=== PATIENT | male | born 1980 | race Hispanic/Latino ===

== ENCOUNTER 2019-10-18 19:59 | Inpatient (IN) | payer BC, MEDICARE ==
[~2019-10-18] VITALS: Ht 180.3 cm; Wt 97.9 kg
[~2019-10-18 19:59] MED LIST: AMLO5TAB9 PO; ASPI-1197 PO; ATOR40TA71 PO; CALC667C10 PO; CHOL200059 PO; FOLI0.8T2 PO; HYDR-4154 PO; INSU100C6 SQ; INSU100V12 SQ; LOSA100T58 PO; NEBI10TA PO; SERT50TA PO
[2019-10-18] MEDS ORDERED: ACETAMINOPHEN EXTRA STRENGTH 500 MG TABLET ONE (20:42)
[2019-10-18 20:48] LABS: BASOPHILS % (AUTO) 0.6 % (0.0-5.0); EOSINOPHILS % (AUTO) 4.4 % (0.0-8.0); HEMATOCRIT 33.9 % (42-54); MEAN CORPUSCULAR HEMOGLOBIN 29.6 pg (27.0-33.0); MEAN CORPUSCULAR HGB CONC 31.6 g/dL (32.0-36.0); MEAN CORPUSCULAR VOLUME 93.6 fL (79-99); MONOCYTES % (AUTO) 12.4 % (3.0-13.0); NEUTROPHILS % (AUTO) 68.2 % (40.0-77.0); PLATELET COUNT (AUTO) 353 K/uL (130-400); RED BLOOD CELL COUNT(AUTO) 3.62 MIL/uL (4.50-6.20); RED CELL DISTRIBUTION WIDTH 13.7 % (11.0-15.5); WHITE BLOOD COUNT (AUTO) 13.9 K/uL (4.8-10.8)
[2019-10-18 21:03] LABS: INR 0.96 (0.85-1.15); PARTIAL THROMBOPLASTIN TIME 30.1 SEC (26.3-35.5); PROTHROMBIN TIME 10.4 SEC (9.6-11.6)
[2019-10-18 21:05] LABS: ALBUMIN 3.2 g/dL (3.5-5.0); BILIRUBIN,TOTAL 0.3 mg/dL (0.2-1.0); POTASSIUM 4.3 mmol/L (3.5-5.1); TOTAL PROTEIN, SERUM 9.2 g/dL (6.0-8.3)
[2019-10-18 21:08] LABS: CREATININE 11.7 mg/dL (0.5-1.5)
[2019-10-18] MEDS ORDERED: ONDANSETRON HCL 4 MG/2 ML VIAL IV PRN (23:00)
[2019-10-18] MEDS ORDERED: VANCOMYCIN PROTOCOL PER PHARMACY IV SCH (23:00)
[2019-10-18] MEDS ORDERED: GUAIFENESIN-DM 200/20 MG 10 ML PO PRN (23:00)
[2019-10-18] MEDS: ZOSYN 3.375GM+NS 50ML 50 ML IV SCH (23:00)
[2019-10-18] MEDS ORDERED: ACETAMINOPHEN 325 MG TAB PO PRN ×2 (23:30)
[2019-10-18] MEDS ORDERED: ZOSYN 3.375GM+NS 50ML 50 ML IV ONE (23:40)
[2019-10-18] MEDS ORDERED: VANCOMYCIN 1GM+NS 250ML 250 ML IV ONE (23:40)
[2019-10-18] MEDS ORDERED: PHARMACY COMMUNICATION MISC SCH (23:45)
[2019-10-19 00:50] VITALS: BP 132/79
[2019-10-19 05:28] LABS: BASOPHILS % (AUTO) 0.4 % (0.0-5.0); EOSINOPHILS % (AUTO) 4.8 % (0.0-8.0); HEMATOCRIT 29.4 % (42-54); LYMPHOCYTES % (AUTO) 21.3 % (21.0-51.0); MEAN CORPUSCULAR HEMOGLOBIN 29.4 pg (27.0-33.0); MEAN CORPUSCULAR HGB CONC 31.6 g/dL (32.0-36.0); MONOCYTES % (AUTO) 13.7 % (3.0-13.0); NEUTROPHILS % (AUTO) 59.4 % (40.0-77.0); PLATELET COUNT (AUTO) 335 K/uL (130-400); RED BLOOD CELL COUNT(AUTO) 3.16 MIL/uL (4.50-6.20); RED CELL DISTRIBUTION WIDTH 13.7 % (11.0-15.5); WHITE BLOOD COUNT (AUTO) 13.6 K/uL (4.8-10.8)
[2019-10-19 06:05] LABS: ALBUMIN 2.8 g/dL (3.5-5.0); BILIRUBIN,TOTAL 0.2 mg/dL (0.2-1.0); POTASSIUM 4.3 mmol/L (3.5-5.1); TOTAL PROTEIN, SERUM 8.2 g/dL (6.0-8.3)
[2019-10-19 06:07] LABS: CREATININE 12.3 mg/dL (0.5-1.5)
[2019-10-19] MEDS ORDERED: COMPOUND IV REFRIGERATED 1 EACH IVSOLN MISC PRN (06:30)
[2019-10-19 07:30] VITALS: BP 171/85
[2019-10-19] MEDS: FAMOTIDINE/PF 20 MG/2 ML VIAL IV SCH (09:16)
[2019-10-19] MEDS: ZOSYN 3.375GM+NS 50ML 50 ML IV SCH ×2 (10:50→23:26)
[2019-10-19 11:00] VITALS: BP 167/108
[2019-10-19 16:00] VITALS: BP 157/92
[2019-10-19] MEDS ORDERED: HEPARIN SODIUM 5000UNIT/ML 1ML VIAL IV PRN (17:30)
[2019-10-19] MEDS: HEPARIN 25000 UNITS/250 ML D5W 250 ML IV SCH (18:48)
--- NOTE | 2019-10-19 19:13 | NUR ---
cm note pt states feels sleepy, unable to interview, per chart review, pt lives with family, independent with adls,ambulation, no dme. dc plan is home. will continue to followup for any dc needs. Addendum: 10/19/19 at 1914 by EDDIE PARDO CM Amended: Links added.
[2019-10-19 21:00] VITALS: BP 174/99
[2019-10-19] MEDS ORDERED: NITROGLYCERIN 1GM/1 INCH PACKET TD SCH (21:00)
[2019-10-20] VITALS (12 sets, daily range): BP systolic 134–179; BP diastolic 58–99
[2019-10-20 00:54] LABS: INR 0.98 (0.85-1.15); PARTIAL THROMBOPLASTIN TIME 50.4 SEC (26.3-35.5); PROTHROMBIN TIME 10.6 SEC (9.6-11.6)
[2019-10-20] MEDS ORDERED: HYDRALAZINE HCL 20 MG/ML VIAL ONE (05:53)
[2019-10-20] MEDS: HEPARIN 25000 UNITS/250 ML D5W 250 ML IV SCH (06:08)
[2019-10-20 07:20] LABS: BASOPHILS % (AUTO) 0.4 % (0.0-5.0); EOSINOPHILS % (AUTO) 4.1 % (0.0-8.0); HEMATOCRIT 30.2 % (42-54); LYMPHOCYTES % (AUTO) 17.7 % (21.0-51.0); MEAN CORPUSCULAR HEMOGLOBIN 29.1 pg (27.0-33.0); MEAN CORPUSCULAR HGB CONC 31.5 g/dL (32.0-36.0); MEAN CORPUSCULAR VOLUME 92.4 fL (79-99); MONOCYTES % (AUTO) 8.1 % (3.0-13.0); NEUTROPHILS % (AUTO) 69.3 % (40.0-77.0); PLATELET COUNT (AUTO) 393 K/uL (130-400); RED BLOOD CELL COUNT(AUTO) 3.27 MIL/uL (4.50-6.20); RED CELL DISTRIBUTION WIDTH 13.7 % (11.0-15.5)
[2019-10-20 07:57] LABS: ALBUMIN 2.8 g/dL (3.5-5.0); BILIRUBIN,TOTAL 0.3 mg/dL (0.2-1.0); PHOSPHORUS 7.9 mg/dL (2.5-4.9); POTASSIUM 4.4 mmol/L (3.5-5.1)
--- NOTE | 2019-10-20 08:29 | NUR ---
ZOFRAN IV GIVEN NOW FOR C/O OF N/V.
[2019-10-20] MEDS: HYDRALAZINE HCL 25 MG TABLET PO SCH (09:00)
[2019-10-20] MEDS: CALCIUM ACETATE 667 MG CAPSULE PO SCH ×3 (09:00→17:00)
[2019-10-20] MEDS: FOLIC ACID/VITAMIN B COMP W-C 1 CAP TAB PO SCH (09:00)
[2019-10-20] MEDS: FAMOTIDINE/PF 20 MG/2 ML VIAL IV SCH (09:00)
[2019-10-20] MEDS: AMLODIPINE BESYLATE 5 MG TAB PO SCH (09:00)
[2019-10-20] MEDS: ASPIRIN 81MG TAB.CHEW PO SCH ×2 (09:00→13:28)
[2019-10-20] MEDS: LOSARTAN 100 MG TABLET PO SCH (09:00)
[2019-10-20] MEDS: CLOPIDOGREL BISULFATE 75 MG TAB PO SCH ×2 (09:00→13:25)
[2019-10-20] MEDS: SERTRALINE HCL 50 MG TABLET PO SCH (09:00)
[2019-10-20] MEDS: SODIUM CHLORIDE 0.9% 1000ML 1,000 ML IV SCH (10:54)
[2019-10-20] MEDS ORDERED: SODIUM CHLORIDE 0.9% 1000ML 1,000 ML IV SCH ×2 (10:54→15:24)
--- NOTE | 2019-10-20 10:58 | NUR ---
DR. SERRANO IN TO SEE PT. WILL OBTAIN RECORDS FROM [facility] [place] GO FROM THERE. OK TO LET PT. HAVE LIQUIDS NOW.
[2019-10-20 12:09] LABS: PROTHROMBIN TIME 10.8 SEC (9.6-11.6)
[2019-10-20] MEDS ORDERED: DiphenhydrAMINE HCL 50 MG/ML VIAL IV SCH (13:15)
[2019-10-20] MEDS: ZOSYN 3.375GM+NS 50ML 50 ML IV SCH (13:38)
--- NOTE | 2019-10-20 13:40 | NUR ---
TO IT SYSTEMS ADMINISTRATOR NOW FOR ANGIOGRAM WITH DR. SERRANO.
[2019-10-20] MEDS ORDERED: FENTANYL CITRATE PF 50 MCG/1 ML 2ML VIAL ONE (13:53)
[2019-10-20] MEDS ORDERED: NITROGLYCERIN 2 MG/VIAL VIAL IV ONE (13:53)
[2019-10-20] MEDS ORDERED: LIDOCAINE HCL 2% 20ML ONE (13:53)
[2019-10-20] MEDS ORDERED: IODIXANOL 320 MG/ML 100 ML VIAL ONE (13:53)
[2019-10-20] MEDS ORDERED: MIDAZOLAM HCL 1 MG/ML 2ML VIAL ONE (13:53)
[2019-10-20] MEDS ORDERED: HEPARIN SODIUM 1000UNIT/ML 10ML VIAL ONE (13:53)
--- NOTE | 2019-10-20 13:57 | NUR ---
DR. STOKES HERE AND REVIEWING CHART, ORDERS TO DC ABX. STOPPED VANCO. AND ZOSYN.
[2019-10-20] MEDS ORDERED: TICAGRELOR 90 MG TABLET ONE (15:14)
[2019-10-20] MEDS ORDERED: ASPIRIN 325MG EC TAB 325 MG TABLET.DR PO ONE (15:14)
--- NOTE | 2019-10-20 15:52 | NUR ---
POST PROCEDURE NOTE: BACK FR BULLDOZER/LOADER/COMPACTOR/SCRAPER, DROWSY BUT EASILY AROUSED, NS INFUSING AND WILL CONTINUE TO INFUSE AT 50ML/HR FOR [address]ESSING IN PL[address] TO RT. GROIN AREA, WELL SECURED, CLEAN AND DRY. NO SWELLING, NO BRUISING NOTED AND DENIES PAIN. WILL KEEP FLAT FOR 4 HRS. AND PT. IS AWARE.
--- NOTE | 2019-10-20 16:50 | NUR ---
consent signed for hemo-dialysis, acute hepatitis panel drawn.
--- NOTE | 2019-10-20 17:00 | NUR ---
STARTED ON H-D TX. NOW.
--- NOTE | 2019-10-20 17:29 | NUR ---
[id number] gave patient BPCI Letter, notified patient that [facility] Coordinator will follow up with them within the next 90 days
[2019-10-20] MEDS: ATORVASTATIN CALCIUM 40 MG TABLET PO SCH (21:06)
[2019-10-20] MEDS: NITROGLYCERIN 1GM/1 INCH PACKET TD SCH (21:06)
[2019-10-21] VITALS (21 sets, daily range): BP systolic 102–180; BP diastolic 49–106
--- NOTE | 2019-10-21 00:50 | NUR ---
PATIENT ADMITTED FROM ER TO ROOM 305. PATIENT AAOX3, NO ACUTE DISTRESS NOTED. WILL CONTINUE TO MONITOR. Addendum: 10/21/19 at 0247 by MIRYAM BABCOCK RN RN DISREGARD ABOVE ENTRY. NOTE ENTERED ON WRONG PATIENT.
[2019-10-21] MEDS ORDERED: VANCOMYCIN PROTOCOL PER PHARMACY IV SCH (02:30)
[2019-10-21] MEDS: ZOSYN 3.375GM+NS 50ML 50 ML IV SCH ×2 (04:41→20:07)
[2019-10-21 05:50] LABS: MEAN CORPUSCULAR HEMOGLOBIN 29.6 pg (27.0-33.0); MEAN CORPUSCULAR HGB CONC 32.1 g/dL (32.0-36.0); MEAN CORPUSCULAR VOLUME 92.4 fL (79-99); PLATELET COUNT (AUTO) 414 K/uL (130-400); RED BLOOD CELL COUNT(AUTO) 3.14 MIL/uL (4.50-6.20); RED CELL DISTRIBUTION WIDTH 13.7 % (11.0-15.5); WHITE BLOOD COUNT (AUTO) 11.5 K/uL (4.8-10.8)
[2019-10-21 06:41] LABS: ALBUMIN 2.7 g/dL (3.5-5.0); BILIRUBIN,TOTAL 0.2 mg/dL (0.2-1.0); POTASSIUM 4.4 mmol/L (3.5-5.1); TOTAL PROTEIN, SERUM 8.3 g/dL (6.0-8.3)
[2019-10-21 06:43] LABS: CREATININE 11.5 mg/dL (0.5-1.5)
[2019-10-21 07:33] LABS: EOSINOPHILS % (MANUAL) 4 % (1-6); LYMPHOCYTES % (MANUAL) 12 % (22-44); MAN.DIFF COMMENT-IMPRESSION MANUAL DIFFERENTIAL; MONOCYTES % (MANUAL) 4 % (2-9); PLATELET MORPHOLOGY COMMENT SLIGHT INCREASED; SEGMENTED NEUTROPHILS % 80 % (40-70)
[2019-10-21] MEDS: CALCIUM ACETATE 667 MG CAPSULE PO SCH ×3 (08:00→17:00)
--- NOTE | 2019-10-21 08:00 | NUR ---
AM SHIFT ASSESSMENT. NPO FOR LT. TMA TODAY. CONSENT OBTAINED BY PM NURSE.
[2019-10-21] MEDS: AMLODIPINE BESYLATE 5 MG TAB PO SCH (09:00)
[2019-10-21] MEDS: LOSARTAN 100 MG TABLET PO SCH (09:00)
[2019-10-21] MEDS: SERTRALINE HCL 50 MG TABLET PO SCH (09:00)
[2019-10-21] MEDS: FOLIC ACID/VITAMIN B COMP W-C 1 CAP TAB PO SCH (09:00)
[2019-10-21] MEDS: HYDRALAZINE HCL 25 MG TABLET PO SCH (09:00)
[2019-10-21] MEDS: FAMOTIDINE/PF 20 MG/2 ML VIAL IV SCH (10:37)
[2019-10-21] MEDS: NITROGLYCERIN 1GM/1 INCH PACKET TD SCH ×2 (10:37→20:08)
[2019-10-21] MEDS ORDERED: BUPIVACAINE/PF 0.5% 30ML VIAL ONE (11:51)
[2019-10-21] MEDS ORDERED: LIDOCAINE HCL 1% 20 ML VIAL ONE (11:51)
[2019-10-21] MEDS ORDERED: HYDROMORPHONE HCL 0.5 MG/0.5 ML ML IVP PRN (12:15)
--- NOTE | 2019-10-21 13:00 | NUR ---
TO OR NOW.
[2019-10-21] MEDS: SODIUM CHLORIDE 0.9% 1000ML 1,000 ML IV SCH (13:01)
[2019-10-21] MEDS: HYDRALAZINE HCL 20 MG/ML VIAL IV PRN ×2 (13:07→23:34)
[2019-10-21] MEDS ORDERED: LIDOCAINE PF 2% 5ML ABBOJECT ONE (13:10)
[2019-10-21] MEDS ORDERED: FENTANYL CITRATE PF 50 MCG/1 ML 2ML VIAL ONE (13:11)
[2019-10-21] MEDS ORDERED: MIDAZOLAM HCL 1 MG/ML 2ML VIAL ONE (13:11)
[2019-10-21] MEDS ORDERED: PROPOFOL 10 MG/ML 20ML VIAL IV ONE ×3 (13:11→14:00)
--- NOTE | 2019-10-21 15:05 | NUR ---
POST OP NOTE:RETURNED TO ROOM AT 1535, AWAKE ALERT AND AT THE TIME DENIED PAIN. DRESSING TO LT. FOOT CLEAN AND DRY, WELL SECURED. PER REPORT PT. DOES HAVE DRAIN TO AMP. SITE, IF NEEDED DRESSING CAN BE REINFORCED. BP 107/69,RR 20.
[2019-10-21] MEDS: ATORVASTATIN CALCIUM 40 MG TABLET PO SCH (20:07)
[2019-10-21] MEDS: MORPHINE SULFATE 2 MG/ML 1ML SYG IVP PRN (20:19)
[2019-10-21] MEDS: HYDROMORPHONE 1 MG/1 ML AMP IVP PRN (23:33)
[2019-10-22] VITALS: BP 180/99
[2019-10-22 04:00] VITALS: BP 140/83
[2019-10-22 05:24] LABS: BASOPHILS % (AUTO) 0.5 % (0.0-5.0); EOSINOPHILS % (AUTO) 4.7 % (0.0-8.0); HEMATOCRIT 28.9 % (42-54); LYMPHOCYTES % (AUTO) 17.8 % (21.0-51.0); MEAN CORPUSCULAR HGB CONC 30.8 g/dL (32.0-36.0); MEAN CORPUSCULAR VOLUME 94.1 fL (79-99); MONOCYTES % (AUTO) 9.6 % (3.0-13.0); NEUTROPHILS % (AUTO) 66.9 % (40.0-77.0); PLATELET COUNT (AUTO) 413 K/uL (130-400); RED BLOOD CELL COUNT(AUTO) 3.07 MIL/uL (4.50-6.20); RED CELL DISTRIBUTION WIDTH 13.8 % (11.0-15.5); WHITE BLOOD COUNT (AUTO) 12.8 K/uL (4.8-10.8)
[2019-10-22] MEDS: ZOSYN 3.375GM+NS 50ML 50 ML IV SCH ×2 (05:41→17:50)
[2019-10-22 05:47] LABS: ALBUMIN 2.8 g/dL (3.5-5.0); BILIRUBIN,TOTAL 0.3 mg/dL (0.2-1.0); PHOSPHORUS 8.2 mg/dL (2.5-4.9); POTASSIUM 4.6 mmol/L (3.5-5.1); TOTAL PROTEIN, SERUM 8.2 g/dL (6.0-8.3)
[2019-10-22 06:08] LABS: CREATININE 14.1 mg/dL (0.5-1.5)
[2019-10-22] MEDS: CALCIUM ACETATE 667 MG CAPSULE PO SCH ×3 (08:00→17:51)
[2019-10-22 08:12] LABS: HEPATITIS A ANTIBODY IGM Negative (Negative); HEPATITIS B CORE IGM Negative (Negative); HEPATITIS Bs ANTIGEN SCREEN P Negative (Negative)
[2019-10-22 08:16] VITALS: BP 148/79
[2019-10-22] MEDS: LOSARTAN 100 MG TABLET PO SCH (09:00)
[2019-10-22] MEDS: AMLODIPINE BESYLATE 5 MG TAB PO SCH (09:00)
[2019-10-22] MEDS: HYDRALAZINE HCL 25 MG TABLET PO SCH (09:00)
[2019-10-22] MEDS: CLOPIDOGREL BISULFATE 75 MG TAB PO SCH (10:46)
[2019-10-22] MEDS: FOLIC ACID/VITAMIN B COMP W-C 1 CAP TAB PO SCH (10:46)
[2019-10-22] MEDS: FAMOTIDINE/PF 20 MG/2 ML VIAL IV SCH (10:47)
[2019-10-22] MEDS: SERTRALINE HCL 50 MG TABLET PO SCH (10:47)
[2019-10-22] MEDS: ASPIRIN 81MG TAB.CHEW PO SCH (10:47)
[2019-10-22] MEDS: NITROGLYCERIN 1GM/1 INCH PACKET TD SCH ×2 (10:48→21:15)
[2019-10-22 11:24] VITALS: BP 126/76
--- NOTE | 2019-10-22 14:20 | NUR ---
patient is on Dialysis this PM.Will ambulate patient with SW non-weight bearing to LLE. Will initiate Physical Therapy Evaluation 10/22/2019.ANTONELLA Jo aware Addendum: 10/22/19 at 1423 by KAVYA TAPIA, PT PT Amended: Links added.
[2019-10-22 16:00] VITALS: BP 103/63
[2019-10-22] MEDS: VANCOMYCIN 1.25 GM in SODIUM CHLORIDE 0.9% 250 ML IV SCH (19:27)
[2019-10-22 20:00] VITALS: BP 148/79
[2019-10-22] MEDS: ATORVASTATIN CALCIUM 40 MG TABLET PO SCH (21:14)
[2019-10-23] VITALS: BP 158/79
[2019-10-23 04:00] VITALS: BP 154/91
[2019-10-23] MEDS: ZOSYN 3.375GM+NS 50ML 50 ML IV SCH ×2 (04:50→17:18)
[2019-10-23 05:23] LABS: HEMATOCRIT 28.5 % (42-54); MEAN CORPUSCULAR HGB CONC 31.2 g/dL (32.0-36.0); MEAN CORPUSCULAR VOLUME 92.8 fL (79-99); PLATELET COUNT (AUTO) 413 K/uL (130-400); RED BLOOD CELL COUNT(AUTO) 3.07 MIL/uL (4.50-6.20); RED CELL DISTRIBUTION WIDTH 13.7 % (11.0-15.5); WHITE BLOOD COUNT (AUTO) 12.9 K/uL (4.8-10.8)
[2019-10-23 06:03] LABS: POTASSIUM 4.3 mmol/L (3.5-5.1)
[2019-10-23 06:17] LABS: CREATININE 10.5 mg/dL (0.5-1.5)
[2019-10-23 07:42] LABS: EOSINOPHILS % (MANUAL) 6 % (1-6); LYMPHOCYTES % (MANUAL) 14 % (22-44); MAN.DIFF COMMENT-IMPRESSION MANUAL DIFFERENTIAL; MONOCYTES % (MANUAL) 3 % (2-9); PLATELET MORPHOLOGY COMMENT SLIGHT INCREASED; SEGMENTED NEUTROPHILS % 77 % (40-70)
[2019-10-23] MEDS: CALCIUM ACETATE 667 MG CAPSULE PO SCH ×3 (07:49→17:18)
[2019-10-23] MEDS: MORPHINE SULFATE 2 MG/ML 1ML SYG IVP PRN ×2 (07:53→12:10)
[2019-10-23 08:24] VITALS: BP 118/68
[2019-10-23] MEDS: LOSARTAN 100 MG TABLET PO SCH (09:00)
[2019-10-23] MEDS: HYDRALAZINE HCL 25 MG TABLET PO SCH (09:00)
[2019-10-23] MEDS: AMLODIPINE BESYLATE 5 MG TAB PO SCH (09:00)
[2019-10-23 11:59] VITALS: BP 116/73
[2019-10-23] MEDS: ASPIRIN 81MG TAB.CHEW PO SCH (12:05)
[2019-10-23] MEDS: SERTRALINE HCL 50 MG TABLET PO SCH (12:05)
[2019-10-23] MEDS: FOLIC ACID/VITAMIN B COMP W-C 1 CAP TAB PO SCH (12:05)
[2019-10-23] MEDS: CLOPIDOGREL BISULFATE 75 MG TAB PO SCH (12:06)
[2019-10-23] MEDS: FAMOTIDINE/PF 20 MG/2 ML VIAL IV SCH (12:10)
[2019-10-23 16:09] VITALS: BP 127/63
[2019-10-23 20:00] VITALS: BP 178/95
[2019-10-23] MEDS: ATORVASTATIN CALCIUM 40 MG TABLET PO SCH (21:00)
[2019-10-24] VITALS: BP 153/88
[2019-10-24 04:00] VITALS: BP 147/84
[2019-10-24] MEDS: ZOSYN 3.375GM+NS 50ML 50 ML IV SCH ×2 (04:22→17:46)
[2019-10-24 04:29] LABS: HEMATOCRIT 27.3 % (42-54); MEAN CORPUSCULAR HEMOGLOBIN 29.6 pg (27.0-33.0); MEAN CORPUSCULAR HGB CONC 31.9 g/dL (32.0-36.0); MEAN CORPUSCULAR VOLUME 92.9 fL (79-99); PLATELET COUNT (AUTO) 404 K/uL (130-400); RED BLOOD CELL COUNT(AUTO) 2.94 MIL/uL (4.50-6.20); RED CELL DISTRIBUTION WIDTH 13.6 % (11.0-15.5); WHITE BLOOD COUNT (AUTO) 14.7 K/uL (4.8-10.8)
[2019-10-24 04:42] LABS: POTASSIUM 4.7 mmol/L (3.5-5.1)
[2019-10-24 04:47] LABS: CREATININE 13.3 mg/dL (0.5-1.5)
[2019-10-24 08:00] VITALS: BP 165/93
[2019-10-24] MEDS: CALCIUM ACETATE 667 MG CAPSULE PO SCH ×3 (08:00→17:47)
[2019-10-24] MEDS: CLOPIDOGREL BISULFATE 75 MG TAB PO SCH (09:00)
[2019-10-24] MEDS: FAMOTIDINE/PF 20 MG/2 ML VIAL IV SCH (09:00)
[2019-10-24] MEDS: SERTRALINE HCL 50 MG TABLET PO SCH (09:00)
[2019-10-24] MEDS: LOSARTAN 100 MG TABLET PO SCH (09:00)
[2019-10-24] MEDS: ASPIRIN 81MG TAB.CHEW PO SCH (09:00)
[2019-10-24] MEDS: AMLODIPINE BESYLATE 5 MG TAB PO SCH (09:00)
[2019-10-24] MEDS: FOLIC ACID/VITAMIN B COMP W-C 1 CAP TAB PO SCH (09:00)
[2019-10-24] MEDS: HYDRALAZINE HCL 25 MG TABLET PO SCH (09:00)
[2019-10-24 12:00] VITALS: BP 159/101
--- NOTE | 2019-10-24 12:33 | NUR ---
Nutrition Intervention: Nutrition screen based on LOS x 6 days. Pt. S/P Left Metatarsal Ampt.(10/21/2019). Pt. on 75gm CCD diet with good p.o. intake, as per pt. Labs reviewed(Alb 2.8, BUN 51, Creat 13.3, GFR 4, BG 130). SR-18, left TMA. LBM: 10/22/2019, per pt. Pt. reports has been on HD for ~2 years. Pt. declined Renal diet education at this time. Pt. voiced no questions regarding diet. Recommendations: 1) Rec. 75gm CCD Renal Dialysis diet. 2) Rec. 30ml ProMod BID with B'fast and dinner meals. 3) Continue to monitor pt's nutritional status. 4) Consult RD as nutrition concerns arise. Addendum: 10/24/19 at [address] Amended: Links added.
[2019-10-24] MEDS: VANCOMYCIN 1.25 GM in SODIUM CHLORIDE 0.9% 250 ML IV SCH (13:47)
[2019-10-24 16:00] VITALS: BP 115/58
--- NOTE | 2019-10-24 17:16 | NUR ---
CM NOTE NEW REFERRAL FOR HH FOR WOUND CARE. MEET WITH PATIENT IN ROOM. PER PATIENT, HAS HAD HH FOR WOUND CARE IN THE PAST WITH [facility]. ALEKS SIGNED FOR [facility] HH. DR. YOUNG OFFICE CALLED TO SEE IF HOME HEALTH WILL BE MANAGED BY . PER HARSH, FAX CLINICALS TO [facility] TO [facility] AND THEY WILL REACH OUT TO [facility]. CLINICALS FAXED AND CONFIRMATION RECEIVED. WHEN DR. CLOVER CALVILLO CALLED TO CONFIRM FAX, OFFICE CLOSED. [facility] CALLED, NO FAXED RECEIVE BY DR. HANNAH CALVILLO. CLINICALS AND ORDER FOR SERVICE FAXED TO [facility], CONFIRMATION RECEIVE. PENDING [facility] FOR HH WITH WOUND CARE. MEET WITH PATIENT IN ROOM TO INFORM OF HH STATUS AND POSSIBLE DC HOME ON TUESDAY 10/24. PER PATIENT, SISTER MIGHT BE ABLE TO HELP WITH WOUND CARE AT HOME WHILE HH ORDER IS PROCESSED. CONVERSATIONS BETWEEN DR. GALO OFFICE, [facility] AND PATIENT REPORTED TO PRIMARY NURSE, JORDAN BERMAN.
[2019-10-24] MEDS: ATORVASTATIN CALCIUM 40 MG TABLET PO SCH (19:26)
[2019-10-24 20:00] VITALS: BP 159/94
[2019-10-24] MEDS: HYDRALAZINE HCL 20 MG/ML VIAL IV PRN (20:32)
[2019-10-25] VITALS: BP 159/85
[2019-10-25 04:00] VITALS: BP 158/84
[2019-10-25] MEDS: ZOSYN 3.375GM+NS 50ML 50 ML IV SCH (04:44)
[2019-10-25 05:39] LABS: BASOPHILS % (AUTO) 0.5 % (0.0-5.0); EOSINOPHILS % (AUTO) 5.8 % (0.0-8.0); HEMATOCRIT 28.2 % (42-54); LYMPHOCYTES % (AUTO) 17.7 % (21.0-51.0); MEAN CORPUSCULAR HEMOGLOBIN 29.2 pg (27.0-33.0); MEAN CORPUSCULAR HGB CONC 31.6 g/dL (32.0-36.0); MEAN CORPUSCULAR VOLUME 92.5 fL (79-99); MONOCYTES % (AUTO) 10.1 % (3.0-13.0); NEUTROPHILS % (AUTO) 65.2 % (40.0-77.0); PLATELET COUNT (AUTO) 411 K/uL (130-400); RED BLOOD CELL COUNT(AUTO) 3.05 MIL/uL (4.50-6.20); RED CELL DISTRIBUTION WIDTH 13.4 % (11.0-15.5); WHITE BLOOD COUNT (AUTO) 13.3 K/uL (4.8-10.8)
[2019-10-25] MEDS: CALCIUM ACETATE 667 MG CAPSULE PO SCH ×2 (05:59→12:31)
[2019-10-25 06:00] LABS: POTASSIUM 4.6 mmol/L (3.5-5.1)
[2019-10-25 07:30] LABS: CREATININE 11.1 mg/dL (0.5-1.5)
[2019-10-25 08:00] VITALS: BP 182/92
[2019-10-25] MEDS: SERTRALINE HCL 50 MG TABLET PO SCH (08:45)
[2019-10-25] MEDS: CLOPIDOGREL BISULFATE 75 MG TAB PO SCH (08:45)
[2019-10-25] MEDS: FOLIC ACID/VITAMIN B COMP W-C 1 CAP TAB PO SCH (08:46)
[2019-10-25] MEDS: HYDRALAZINE HCL 25 MG TABLET PO SCH (08:46)
[2019-10-25] MEDS: AMLODIPINE BESYLATE 5 MG TAB PO SCH (08:46)
[2019-10-25] MEDS: ASPIRIN 81MG TAB.CHEW PO SCH (08:47)
[2019-10-25] MEDS: LOSARTAN 100 MG TABLET PO SCH (08:47)
[2019-10-25] MEDS: FAMOTIDINE/PF 20 MG/2 ML VIAL IV SCH (08:48)
[2019-10-25] MEDS ORDERED: VANCOMYCIN 1.25 GM in SODIUM CHLORIDE 0.9% 250 ML IV SCH ×6 (09:00)
[2019-10-25 12:00] VITALS: BP 146/86
[2019-10-25] MEDS: HYDROMORPHONE 1 MG/1 ML AMP IVP PRN (12:31)
[2019-10-25] MEDS ORDERED: CEPH500B PO (15:51)
[2019-10-25] MEDS ORDERED: CLOP75TA14 PO (15:51)
--- NOTE | 2019-10-25 16:12 | NUR ---
CM NOTE CM spoke to Reina with [facility] home health. [facility] pt has been accepted. [facility] home health nurse will not be able to see pt until Sunday. CM verified with pt that sister can do dressing change tomorrow. CM notified primary nurse to call report.
--- NOTE | 2019-10-25 17:14 | NUR ---
REPORT CALLED TO IMAN BLANCHARD RN OF [facility].
== END 2019-10-25 17:30 | disposition home health service (06) | DRG 853 ==
LOC: EDH 19:59 → EDHIP 22:57 → 3BH 10-19 00:18
PROVIDERS: ADMIT Internal Medicine; ATTEND Internal Medicine
PROC: 04CQ3ZZ Extirpation of Matter from Left Anterior Tibial Artery, Percutaneous Approach (ICD-10-PCS; 2019-10-20)
PROC: 047Q3ZZ Dilation of Left Anterior Tibial Artery, Percutaneous Approach (ICD-10-PCS; 2019-10-20)
PROC: B41GYZZ Fluoroscopy of Left Lower Extremity Arteries using Other Contrast (ICD-10-PCS; 2019-10-20)
PROC: B41FYZZ Fluoroscopy of Right Lower Extremity Arteries using Other Contrast (ICD-10-PCS; 2019-10-20)
PROC: 0Y6N0ZB Detachment at Left Foot, Partial 2nd Ray, Open Approach (ICD-10-PCS; 2019-10-21)
PROC: 0Y6N0ZC Detachment at Left Foot, Partial 3rd Ray, Open Approach (ICD-10-PCS; 2019-10-21)
PROC: 0Y6N0Z9 Detachment at Left Foot, Partial 1st Ray, Open Approach (ICD-10-PCS; principal; 2019-10-21 13:10)
PROC: 5A1D70Z Performance of Urinary Filtration, Intermittent, Less than 6 Hours Per Day (ICD-10-PCS; 2019-10-24)
PROC: 5A1D70Z Performance of Urinary Filtration, Intermittent, Less than 6 Hours Per Day (ICD-10-PCS; 2019-10-24)
PROC: 5A1D70Z Performance of Urinary Filtration, Intermittent, Less than 6 Hours Per Day (ICD-10-PCS; 2019-10-24)
DX: A41.9 Sepsis, unspecified organism (principal); N18.6 End stage renal disease; L03.116 Cellulitis of left lower limb; E11.52 Type 2 diabetes mellitus with diabetic peripheral angiopathy with gangrene; I12.0 Hypertensive chronic kidney disease with stage 5 chronic kidney disease or end stage renal disease; M86.9 Osteomyelitis, unspecified; E11.22 Type 2 diabetes mellitus with diabetic chronic kidney disease; E11.621 Type 2 diabetes mellitus with foot ulcer; D64.9 Anemia, unspecified; E11.69 Type 2 diabetes mellitus with other specified complication; E66.9 Obesity, unspecified; E78.5 Hyperlipidemia, unspecified; H54.8 Legal blindness, as defined in USA; I70.202 Unspecified atherosclerosis of native arteries of extremities, left leg; L97.529 Non-pressure chronic ulcer of other part of left foot with unspecified severity; Z79.02 Long term (current) use of antithrombotics/antiplatelets; Z79.82 Long term (current) use of aspirin; Z68.30 Body mass index [BMI] 30.0-30.9, adult; Z99.2 Dependence on renal dialysis; Z80.9 Family history of malignant neoplasm, unspecified; Z82.0 Family history of epilepsy and other diseases of the nervous system; Z82.1 Family history of blindness and visual loss; Z82.3 Family history of stroke; Z82.49 Family history of ischemic heart disease and other diseases of the circulatory system; Z82.5 Family history of asthma and other chronic lower respiratory diseases; Z83.3 Family history of diabetes mellitus; Z89.429 Acquired absence of other toe(s), unspecified side; Z91.19 Patient's noncompliance with other medical treatment and regimen
CPT/HCPCS: 36415; 37229; 71045; 73630; 73718; 75710; 75774; 76882; 80048; 80053; 80074; 80202; 82948; 83605; 84100; 84145; 84484; 85025; 85027; 85347; 85610; 85730; 87040; 87070; 87076; 87077; 87186; 87804; 88307; 88311; 90935; 93005; 93926; 99156; 99157; C1760; C1769; C1894; G0378; J0360; J1170; J1200; J1644; J2001; J2250; J2405; J2543; J2704; J3010; J3370; J3490; J7030; Q9967

== ENCOUNTER → 2022-03-23 | Outpatient (CLI) | payer OTHER ==
[~2022-03-23] MED LIST changes: +AMLO-257 PO; -AMLO5TAB9 PO; +CEPH500B PO; -CHOL200059 PO; +CLOP75TA14 PO; -FOLI0.8T2 PO; -INSU100C6 SQ; -INSU100V12 SQ; -NEBI10TA PO
== END | disposition home or self-care (01) ==
LOC: RAH 09:41
PROVIDERS: ATTEND Internal Medicine
DX: N64.4 Mastodynia (principal); N62 Hypertrophy of breast
CPT/HCPCS: 76641; 77066

== ENCOUNTER 2023-01-15 10:10 | Observation (INO) | payer OTHER ==
[~2023-01-15] VITALS: Ht 177.8 cm; Wt 116.8 kg
[2023-01-15] VITALS (17 sets, daily range): BP systolic 142–194; BP diastolic 59–100
[~2023-01-15 10:10] MED LIST changes: +CLOP-31 PO; -CLOP75TA14 PO; -LOSA100T58 PO; +LOSA100T59 PO
[2023-01-15] MEDS ORDERED: CYCLOBENZAPRINE HCL 10 MG TABLET PO ONE (12:00)
[2023-01-15] MEDS ORDERED: KETOROLAC 15MG/ML VIAL (15MG/ML) IM ONE (12:00)
[2023-01-15 12:44] LABS: BASOPHILS % (AUTO) 0.5 % (0.0-5.0); EOSINOPHILS % (AUTO) 2.5 % (0.0-8.0); HEMATOCRIT 33.7 % (42-54); LYMPHOCYTES % (AUTO) 14.2 % (21.0-51.0); MEAN CORPUSCULAR HEMOGLOBIN 31.3 pg (27.0-33.0); MEAN CORPUSCULAR HGB CONC 32.6 g/dL (32.0-36.0); MEAN CORPUSCULAR VOLUME 95.7 fL (79-99); MONOCYTES % (AUTO) 8.3 % (3.0-13.0); PLATELET COUNT (AUTO) 308 K/uL (130-400); RED BLOOD CELL COUNT(AUTO) 3.52 MIL/uL (4.50-6.20); WHITE BLOOD COUNT (AUTO) 13.2 K/uL (4.8-10.8)
[2023-01-15 13:02] LABS: ALBUMIN 3.8 g/dL (3.5-5.0); POTASSIUM 5.5 mmol/L (3.5-5.1); TOTAL PROTEIN, SERUM 8.5 g/dL (6.0-8.3)
[2023-01-15 13:05] LABS: CREATININE 14.8 mg/dL (0.5-1.5)
[2023-01-15] MEDS ORDERED: PANTOPRAZOLE 40 MG TAB DR PO SCH (14:00)
[2023-01-15] MEDS: HYDRALAZINE 25MG TABLET PO SCH ×2 (14:00→22:31)
[2023-01-15] MEDS ORDERED: LIDOCAINE 5% TOPICAL PATCH TP ONE (14:00)
[2023-01-15] MEDS ORDERED: HYDROMORPHONE 0.5 MG SYG (0.5MG/0.5ML) IVP PRN (14:00)
[2023-01-15 14:30] LABS: INR 0.96 (0.85-1.15); PROTHROMBIN TIME 10.5 SEC (9.6-11.6)
[2023-01-15] MEDS ORDERED: HYDRALAZINE 20MG/ML VIAL IV PRN (14:30)
[2023-01-15] MEDS ORDERED: ONDANSETRON 4MG INJ IVP PRN (14:30)
[2023-01-15 14:31] LABS: CRP QUANTITATIVE 22.1 mg/L (0.00-9.0)
[2023-01-15] MEDS: ACETAMINOPHEN 325 MG TAB PO SCH ×2 (15:00→22:31)
[2023-01-15] MEDS ORDERED: ALPRAZOLAM 0.25 MG TABLET PO PRN (15:30)
[2023-01-15] MEDS: INSULIN HUMULIN R 100 UNIT/ML 3ML SQ SCH ×2 (16:30→21:00)
[2023-01-15 20:27] LABS: HEPATITIS B SURFACE ANTIGEN Non-Reactive (Nonreactive)
[2023-01-16 03:58] VITALS: BP 163/109
[2023-01-16 05:13] LABS: HEMATOCRIT 35.9 % (42-54); MEAN CORPUSCULAR HEMOGLOBIN 31.2 pg (27.0-33.0); MEAN CORPUSCULAR HGB CONC 32.3 g/dL (32.0-36.0); MEAN CORPUSCULAR VOLUME 96.5 fL (79-99); RED BLOOD CELL COUNT(AUTO) 3.72 MIL/uL (4.50-6.20); RED CELL DISTRIBUTION WIDTH 15.1 % (11.0-15.5); WHITE BLOOD COUNT (AUTO) 12.2 K/uL (4.8-10.8)
[2023-01-16] MEDS: HYDRALAZINE 25MG TABLET PO SCH (05:18)
[2023-01-16] MEDS: INSULIN HUMULIN R 100 UNIT/ML 3ML SQ SCH ×2 (05:18→12:16)
[2023-01-16] MEDS: ACETAMINOPHEN 325 MG TAB PO SCH (05:20)
[2023-01-16] MEDS ORDERED: HYDROMORPHONE 0.5 MG SYG (0.5MG/0.5ML) IVP PRN (06:30)
[2023-01-16] MEDS ORDERED: ACETAMINOPHEN 325 MG TAB PO PRN (06:30)
[2023-01-16 08:00] VITALS: BP 197/99
[2023-01-16] MEDS ORDERED: LOSARTAN 100 MG TABLET PO SCH (09:00)
[2023-01-16] MEDS ORDERED: LIDO1ADH82 TP (09:22)
[2023-01-16] MEDS ORDERED: HYDR25 PO (09:34)
[2023-01-16] MEDS ORDERED: AMLODIPINE 5 MG TAB PO SCH (10:00)
[2023-01-16 12:00] VITALS: BP 180/93
[2023-01-17] MEDS ORDERED: AMLODIPINE 5 MG TAB PO SCH (09:00)
== END 2023-01-16 16:45 | disposition home or self-care (01) ==
LOC: EDH 10:10 → EDHIP 13:55 → INTOOBSV 13:55 → 4AH 18:35
PROVIDERS: ADMIT Internal Medicine; ATTEND Internal Medicine
DX: M25.551 Pain in right hip (principal); I16.0 Hypertensive urgency; E87.5 Hyperkalemia; D72.829 Elevated white blood cell count, unspecified; I12.0 Hypertensive chronic kidney disease with stage 5 chronic kidney disease or end stage renal disease; E11.22 Type 2 diabetes mellitus with diabetic chronic kidney disease; N18.6 End stage renal disease; D63.1 Anemia in chronic kidney disease; G47.33 Obstructive sleep apnea (adult) (pediatric); E78.5 Hyperlipidemia, unspecified; I73.9 Peripheral vascular disease, unspecified; M86.9 Osteomyelitis, unspecified; M54.50 Low back pain, unspecified; E66.9 Obesity, unspecified; L98.9 Disorder of the skin and subcutaneous tissue, unspecified; Q33.3 Agenesis of lung; Z79.899 Other long term (current) drug therapy; Z99.2 Dependence on renal dialysis; Z91.199 Patient's noncompliance with other medical treatment and regimen due to unspecified reason
CPT/HCPCS: 96372; 99285; 82977; 80053; 83690; 85025; 85610; 85730; 85651; 87040 ×2; 82948 ×5; 86706; 87340; 86704; 86140; 36415 ×2; 73502; 72192; 84145; 96374; 80048; 85027; 83970; 73721; J1885; J1815; G0378 ×2; J0360; 90935

== ENCOUNTER → 2023-08-09 | Outpatient (CLI) | payer OTHER ==
[~2023-08-09] MED LIST changes: +HYDR25 PO; +LIDO1ADH82 TP; -LOSA100T59 PO
== END | disposition home or self-care (01) ==
LOC: RAH 15:02
PROVIDERS: ATTEND Nurse Practitioner Family
DX: R07.89 Other chest pain (principal)
CPT/HCPCS: 71046; 71100

== ENCOUNTER 2024-04-24 16:34 | Emergency (ER) | payer OTHER ==
[~2024-04-24] VITALS: Ht 180.3 cm; Wt 104.3 kg
[~2024-04-24 16:34] MED LIST changes: -HYDR-4154 PO; +HYDR50TA37 PO
[2024-04-24] MEDS: HYDROcodone/APAP 5/325 1 TAB TABLET PO ONE (17:42)
[2024-04-24] MEDS ORDERED: ACET-2079 PO (18:43)
[2024-04-24 19:39] VITALS: BP 142/71; PULSE 98; RESP 20; TEMP 98; O2SAT 96
== END 2024-04-24 20:16 | disposition home or self-care (01) ==
LOC: EDH 16:34
DX: M25.571 Pain in right ankle and joints of right foot (principal); R22.41 Localized swelling, mass and lump, right lower limb; E11.9 Type 2 diabetes mellitus without complications; I10 Essential (primary) hypertension; Z98.890 Other specified postprocedural states; Z79.899 Other long term (current) drug therapy; Z79.2 Long term (current) use of antibiotics; Z79.82 Long term (current) use of aspirin; Z89.422 Acquired absence of other left toe(s); X50.1XXA Overexertion from prolonged static or awkward postures, initial encounter; Y93.01 Activity, walking, marching and hiking; Y92.89 Other specified places as the place of occurrence of the external cause; Y99.8 Other external cause status
CPT/HCPCS: 29515; 73610

== ENCOUNTER → 2024-05-09 | Outpatient (CLI) | payer OTHER ==
[~2024-05-09] MED LIST changes: +ACET-2079 PO
== END | disposition home or self-care (01) ==
LOC: RAH 14:07
PROVIDERS: ATTEND Orthopaedic Surgery
DX: S86.001A Unspecified injury of right Achilles tendon, initial encounter (principal); X58.XXXA Exposure to other specified factors, initial encounter; Y93.89 Activity, other specified; Y92.89 Other specified places as the place of occurrence of the external cause; Y99.8 Other external cause status
CPT/HCPCS: 73718

== ENCOUNTER 2024-05-29 07:13 | Day surgery (SDC) | payer OTHER ==
[2024-05-23 11:34] LABS: BASOPHILS # (AUTO) 0.04 K/uL (0.00-0.20); BASOPHILS % (AUTO) 0.4 % (0.0-5.0); EOSINOPHILS # (AUTO) 0.36 K/uL (0.00-0.70); EOSINOPHILS % (AUTO) 3.6 % (0.0-8.0); IMMATURE GRANULOCYTE ABSOLUTE 0.02 K/uL (0-1); LYMPHOCYTES # (AUTO) 2.4 K/uL (1.0-4.8); LYMPHOCYTES % (AUTO) 23.8 % (21.0-51.0); MEAN CORPUSCULAR HEMOGLOBIN 30.8 pg (27.0-33.0); MEAN CORPUSCULAR HGB CONC 32.3 g/dL (32.0-36.0); MEAN CORPUSCULAR VOLUME 95.4 fL (79-99); MONOCYTES # (AUTO) 0.8 K/uL (0.1-1.0); MONOCYTES % (AUTO) 8.3 % (3.0-13.0); NEUTROPHILS # (AUTO) 6.4 K/uL (1.8-7.7); NEUTROPHILS % (AUTO) 63.7 % (40.0-77.0); PLATELET COUNT (AUTO) 314 K/uL (130-400); RED BLOOD CELL COUNT(AUTO) 3.67 MIL/uL (4.50-6.20); RED CELL DISTRIBUTION WIDTH 13.3 % (11.0-15.5)
[2024-05-23 12:00] LABS: POTASSIUM 5.9 mmol/L (3.5-5.1)
[2024-05-23 12:06] VITALS: BP 172/90; PULSE 85; RESP 17; TEMP 97.9
[2024-05-23 12:37] LABS: CREATININE 10.5 mg/dL (0.5-1.3)
[2024-05-23 13:21] LABS: INR 1.01 (0.85-1.15); PROTHROMBIN TIME 10.9 SEC (9.6-11.6)
[2024-05-23 13:22] LABS: PARTIAL THROMBOPLASTIN TIME 28.2 SEC (26.3-35.5)
[~2024-05-29] VITALS: Ht 180.3 cm; Wt 109.5 kg
[2024-05-29] VITALS (16 sets, daily range): BP systolic 93–134; BP diastolic 57–76; PULSE 88–96; RESP 14–18; TEMP 97–98.3
[~2024-05-29 07:13] MED LIST changes: -ACET-2079 PO; +ALPR0.5T PO; -AMLO-257 PO; -ASPI-1197 PO; -CALC667C10 PO; -CEPH500B PO; +FOLI0.8T53 PO; -HYDR25 PO; +ISOS30TA92 PO; -LIDO1ADH82 TP; +LOSA100T59 PO; +SERT-440 PO; -SERT50TA PO; +SEVE800T7 PO; +TIRZ5PEN SQ; +ZOLP5TAB8 PO; +lispro SQ; +tramadol PO; +vitamin d2 PO
[2024-05-29] MEDS ORDERED: NEOSTIGMINE METHYLSULFATE 1MG/ML IV ONE (07:22)
[2024-05-29] MEDS ORDERED: LIDOCAINE PF 100MG/5ML (2%) SYRINGE 5ML ONE (07:22)
[2024-05-29] MEDS ORDERED: SUCCINYLCHOLINE CHLORIDE 20 MG/ML 10 ML VIAL ONE (07:22)
[2024-05-29] MEDS ORDERED: rocuRONium bROMide 10MG/1ML 5ML VL ONE ×2 (07:22→09:41)
[2024-05-29] MEDS ORDERED: proPOFol 10 MG/ML 20ML VIAL IV ONE (07:22)
[2024-05-29] MEDS ORDERED: GLYCOPYRROLATE 0.2 MG/ML 5 ML VIAL ONE (07:22)
[2024-05-29] MEDS ORDERED: dexaMETHasone SOD PHOSPHATE 10MG/ML 1ML VIAL ONE (07:22)
[2024-05-29] MEDS ORDERED: ondanSETRON 4MG INJ ONE (07:22)
[2024-05-29] MEDS ORDERED: MIDAZOLAM HCL 1 MG/ML 2ML VIAL ONE (07:22)
[2024-05-29] MEDS ORDERED: FENTanyl CITRate PF 50 MCG/1 ML 2ML VIAL ONE ×2 (07:23→10:42)
[2024-05-29] MEDS ORDERED: ketaMINE 50MG/ML SYRINGE 50 MG/ML DISP.SYRIN ONE (07:57)
[2024-05-29] MEDS ORDERED: ALBUMIN (HUMAN) 25% 50 ML IV ONE (07:58)
[2024-05-29] MEDS ORDERED: FAMOTIDINE 20MG VIAL IV ONE (07:59)
[2024-05-29] MEDS ORDERED: SUGAMMADEX SODIUM 200 MG/2 ML VIAL IV ONE (07:59)
[2024-05-29] MEDS ORDERED: phenylEPHRINE HCL 10 MG/ML 1ML VIAL IV ONE (08:02)
[2024-05-29] MEDS ORDERED: 0.9% NACL 500ML IV.SOLN 500 ML IV ONE (08:04)
[2024-05-29] MEDS ORDERED: ePHEDrine SULFate 50 MG/ML AMPULE ONE (08:04)
[2024-05-29] MEDS ORDERED: ROPivacaine 0.5% 5MG/ML 30ML ONE (08:08)
[2024-05-29 08:21] LABS: POTASSIUM 5.1 mmol/L (3.5-5.1)
[2024-05-29 08:26] LABS: CREATININE 8.3 mg/dL (0.5-1.3)
[2024-05-29] MEDS: ceFAZolin SODIUM 2 GM VIAL ONE (09:47)
[2024-05-29] MEDS: ceFAZolin SODIUM 1 GM VIAL ONE (10:10)
[2024-05-29] MEDS: BUPIvacaine/PF 0.25% 30ML VIAL IJ ONE (11:33)
[2024-05-29] MEDS ORDERED: ACET-2079 PO (12:01)
[2024-05-29] MEDS ORDERED: CEPH500B PO (12:01)
== END 2024-05-29 14:15 | disposition home health service (06) ==
LOC: DAH 07:13
PROVIDERS: ATTEND Orthopaedic Surgery
DX: S86.001A Unspecified injury of right Achilles tendon, initial encounter (principal); M25.571 Pain in right ankle and joints of right foot; E11.22 Type 2 diabetes mellitus with diabetic chronic kidney disease; E66.01 Morbid (severe) obesity due to excess calories; N18.6 End stage renal disease; Z99.2 Dependence on renal dialysis; Z68.32 Body mass index [BMI] 32.0-32.9, adult; X58.XXXA Exposure to other specified factors, initial encounter; Y93.89 Activity, other specified; Y92.89 Other specified places as the place of occurrence of the external cause; Y99.8 Other external cause status
CPT/HCPCS: 80048 ×2; 85025; 85610; 85730; 36415 ×2; 27650; 97161; 64447; 82948 ×2; 97116; 97530; 93005; C1713 ×2; A4663; J7030; A4649 ×3; J7040; J3490 ×6; J3010 ×2; J0690 ×2; J1100; J0330; J0665; J2003; J2250; J2704; J2405; P9047; J2710; J2795; J2371; A6223; A4930; A6254; A4215; A4657; A4213; A4222; A4221; A4216; A4223 ×2; G8980-CI; G8983-CI

== ENCOUNTER → 2024-06-10 | Outpatient (CLI) | payer OTHER ==
[~2024-06-10] MED LIST changes: +ACET-2079 PO; +CEPH500B PO; +LIDOCAINE HCL 4% LTA SOL 4 ML VIAL TP ONE
== END | disposition home or self-care (01) ==
LOC: WHH 08:15
PROVIDERS: ATTEND Family Medicine
DX: T86.821 Skin graft (allograft) (autograft) failure (principal); T81.89XA Other complications of procedures, not elsewhere classified, initial encounter; E11.621 Type 2 diabetes mellitus with foot ulcer; L97.412 Non-pressure chronic ulcer of right heel and midfoot with fat layer exposed; E78.00 Pure hypercholesterolemia, unspecified; I13.11 Hypertensive heart and chronic kidney disease without heart failure, with stage 5 chronic kidney disease, or end stage renal disease; E11.22 Type 2 diabetes mellitus with diabetic chronic kidney disease; N18.6 End stage renal disease; Z79.899 Other long term (current) drug therapy; Y83.8 Other surgical procedures as the cause of abnormal reaction of the patient, or of later complication, without mention of misadventure at the time of the procedure; Y83.2 Surgical operation with anastomosis, bypass or graft as the cause of abnormal reaction of the patient, or of later complication, without mention of misadventure at the time of the procedure
CPT/HCPCS: G0463; A6209 ×7; A4450

== ENCOUNTER → 2024-06-17 | Outpatient (CLI) | payer OTHER | END | disposition home or self-care (01) | LOC: WHH 08:14 | PROVIDERS: ATTEND Family Medicine | DX: T81.89XD Other complications of procedures, not elsewhere classified, subsequent encounter (principal); T86.821 Skin graft (allograft) (autograft) failure; L97.412 Non-pressure chronic ulcer of right heel and midfoot with fat layer exposed; E11.22 Type 2 diabetes mellitus with diabetic chronic kidney disease; I12.0 Hypertensive chronic kidney disease with stage 5 chronic kidney disease or end stage renal disease; N18.6 End stage renal disease; E78.00 Pure hypercholesterolemia, unspecified; Z89.422 Acquired absence of other left toe(s); Z79.899 Other long term (current) drug therapy; Z99.2 Dependence on renal dialysis; Y83.8 Other surgical procedures as the cause of abnormal reaction of the patient, or of later complication, without mention of misadventure at the time of the procedure; Y83.2 Surgical operation with anastomosis, bypass or graft as the cause of abnormal reaction of the patient, or of later complication, without mention of misadventure at the time of the procedure | CPT/HCPCS: G0463; A6209 ×7; A4450; A6260 ==

== ENCOUNTER → 2024-06-19 | Outpatient (CLI) | payer OTHER ==
[~2024-06-19] MED LIST changes: -LIDOCAINE HCL 4% LTA SOL 4 ML VIAL TP ONE
--- NOTE | 2024-06-19 09:56 | EKG ---
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
[2024-06-19 09:58] LABS: HEMOGLOBIN A1C 6.2 % (4.0-6.0)
--- NOTE | 2024-06-19 11:20 | HMCIMG ---
CHEST 2VWS HISTORY: Preop COMPARISON: 08/09/2023 FINDINGS: Frontal and lateral projections of the chest were obtained. There is no acute pulmonary infiltrates or failure. The heart is not enlarged. Prominent interstitial markings are seen. Degenerative changes are seen of the thoracolumbar spine. IMPRESSION: 1. No acute pulmonary infiltrates.
== END | disposition home or self-care (01) ==
LOC: RAH 09:06
PROVIDERS: ATTEND Family Medicine
DX: I44.4 Left anterior fascicular block (principal); J84.9 Interstitial pulmonary disease, unspecified; T86.821 Skin graft (allograft) (autograft) failure; M47.815 Spondylosis without myelopathy or radiculopathy, thoracolumbar region; Y82.8 Other medical devices associated with adverse incidents
CPT/HCPCS: 71046; 83036; 93005

== ENCOUNTER → 2024-06-24 | Outpatient (CLI) | payer OTHER ==
[~2024-06-24] MED LIST changes: +LIDOCAINE HCL 4% LTA SOL 4 ML VIAL TP ONE
== END | disposition home or self-care (01) ==
LOC: WHH 07:57
PROVIDERS: ATTEND Family Medicine
DX: T86.821 Skin graft (allograft) (autograft) failure (principal); E11.621 Type 2 diabetes mellitus with foot ulcer; T81.89XD Other complications of procedures, not elsewhere classified, subsequent encounter; L97.412 Non-pressure chronic ulcer of right heel and midfoot with fat layer exposed; E78.00 Pure hypercholesterolemia, unspecified; I13.11 Hypertensive heart and chronic kidney disease without heart failure, with stage 5 chronic kidney disease, or end stage renal disease; E11.22 Type 2 diabetes mellitus with diabetic chronic kidney disease; N18.6 End stage renal disease; Z79.899 Other long term (current) drug therapy; Y83.2 Surgical operation with anastomosis, bypass or graft as the cause of abnormal reaction of the patient, or of later complication, without mention of misadventure at the time of the procedure; Y83.8 Other surgical procedures as the cause of abnormal reaction of the patient, or of later complication, without mention of misadventure at the time of the procedure
CPT/HCPCS: G0463; A6209 ×7

== ENCOUNTER → 2024-07-01 | Outpatient (CLI) | payer OTHER | END | disposition home or self-care (01) | LOC: WHH 09:16 | PROVIDERS: ATTEND Family Medicine | DX: T86.821 Skin graft (allograft) (autograft) failure (principal); T81.89XD Other complications of procedures, not elsewhere classified, subsequent encounter; E11.621 Type 2 diabetes mellitus with foot ulcer; L97.412 Non-pressure chronic ulcer of right heel and midfoot with fat layer exposed; E11.22 Type 2 diabetes mellitus with diabetic chronic kidney disease; I12.0 Hypertensive chronic kidney disease with stage 5 chronic kidney disease or end stage renal disease; N18.6 End stage renal disease; E78.00 Pure hypercholesterolemia, unspecified; E66.9 Obesity, unspecified; Z68.33 Body mass index [BMI] 33.0-33.9, adult; Z79.899 Other long term (current) drug therapy; Z89.422 Acquired absence of other left toe(s); Y83.2 Surgical operation with anastomosis, bypass or graft as the cause of abnormal reaction of the patient, or of later complication, without mention of misadventure at the time of the procedure; Y83.8 Other surgical procedures as the cause of abnormal reaction of the patient, or of later complication, without mention of misadventure at the time of the procedure | CPT/HCPCS: G0277; A6209; A6260 ==

== ENCOUNTER → 2024-07-03 | Outpatient (CLI) | payer OTHER ==
[~2024-07-03] MED LIST changes: -LIDOCAINE HCL 4% LTA SOL 4 ML VIAL TP ONE
== END | disposition home or self-care (01) ==
LOC: WHH 10:16
PROVIDERS: ATTEND Family Medicine
DX: T86.821 Skin graft (allograft) (autograft) failure (principal); T81.89XD Other complications of procedures, not elsewhere classified, subsequent encounter; E11.621 Type 2 diabetes mellitus with foot ulcer; L97.521 Non-pressure chronic ulcer of other part of left foot limited to breakdown of skin; L97.412 Non-pressure chronic ulcer of right heel and midfoot with fat layer exposed; E11.22 Type 2 diabetes mellitus with diabetic chronic kidney disease; I13.11 Hypertensive heart and chronic kidney disease without heart failure, with stage 5 chronic kidney disease, or end stage renal disease; N18.6 End stage renal disease; E78.00 Pure hypercholesterolemia, unspecified; E66.9 Obesity, unspecified; Z79.899 Other long term (current) drug therapy; Z68.33 Body mass index [BMI] 33.0-33.9, adult; Y83.2 Surgical operation with anastomosis, bypass or graft as the cause of abnormal reaction of the patient, or of later complication, without mention of misadventure at the time of the procedure; Y83.8 Other surgical procedures as the cause of abnormal reaction of the patient, or of later complication, without mention of misadventure at the time of the procedure
CPT/HCPCS: G0277

== ENCOUNTER → 2024-07-17 | Outpatient (CLI) | payer OTHER ==
[~2024-07-17] MED LIST changes: +LIDOCAINE HCL 4% LTA SOL 4 ML VIAL TP ONE
== END | disposition home or self-care (01) ==
LOC: WHH 08:16
PROVIDERS: ATTEND Family Medicine
DX: T81.89XD Other complications of procedures, not elsewhere classified, subsequent encounter (principal); T86.821 Skin graft (allograft) (autograft) failure; E11.621 Type 2 diabetes mellitus with foot ulcer; L97.412 Non-pressure chronic ulcer of right heel and midfoot with fat layer exposed; E11.22 Type 2 diabetes mellitus with diabetic chronic kidney disease; I13.11 Hypertensive heart and chronic kidney disease without heart failure, with stage 5 chronic kidney disease, or end stage renal disease; N18.6 End stage renal disease; E78.00 Pure hypercholesterolemia, unspecified; E66.9 Obesity, unspecified; Z79.899 Other long term (current) drug therapy; Z68.33 Body mass index [BMI] 33.0-33.9, adult; Z89.432 Acquired absence of left foot; Y83.2 Surgical operation with anastomosis, bypass or graft as the cause of abnormal reaction of the patient, or of later complication, without mention of misadventure at the time of the procedure; Y83.8 Other surgical procedures as the cause of abnormal reaction of the patient, or of later complication, without mention of misadventure at the time of the procedure
CPT/HCPCS: 11042; A6209 ×3; A4450

== ENCOUNTER → 2024-07-24 | Outpatient (CLI) | payer OTHER | END | disposition home or self-care (01) | LOC: WHH 08:12 | PROVIDERS: ATTEND Family Medicine | DX: T81.89XD Other complications of procedures, not elsewhere classified, subsequent encounter (principal); T86.821 Skin graft (allograft) (autograft) failure; E11.621 Type 2 diabetes mellitus with foot ulcer; L97.412 Non-pressure chronic ulcer of right heel and midfoot with fat layer exposed; E11.22 Type 2 diabetes mellitus with diabetic chronic kidney disease; I13.11 Hypertensive heart and chronic kidney disease without heart failure, with stage 5 chronic kidney disease, or end stage renal disease; N18.6 End stage renal disease; E78.00 Pure hypercholesterolemia, unspecified; E66.9 Obesity, unspecified; Z79.899 Other long term (current) drug therapy; Z68.33 Body mass index [BMI] 33.0-33.9, adult; Z89.432 Acquired absence of left foot; Y83.2 Surgical operation with anastomosis, bypass or graft as the cause of abnormal reaction of the patient, or of later complication, without mention of misadventure at the time of the procedure; Y83.8 Other surgical procedures as the cause of abnormal reaction of the patient, or of later complication, without mention of misadventure at the time of the procedure | CPT/HCPCS: 11042; A6209 ×4 ==

== ENCOUNTER → 2024-08-21 | Outpatient (CLI) | payer OTHER | END | disposition home or self-care (01) | LOC: WHH 08:08 | PROVIDERS: ATTEND Family Medicine | DX: T81.89XD Other complications of procedures, not elsewhere classified, subsequent encounter (principal); T86.821 Skin graft (allograft) (autograft) failure; E11.621 Type 2 diabetes mellitus with foot ulcer; L97.412 Non-pressure chronic ulcer of right heel and midfoot with fat layer exposed; E11.22 Type 2 diabetes mellitus with diabetic chronic kidney disease; I13.11 Hypertensive heart and chronic kidney disease without heart failure, with stage 5 chronic kidney disease, or end stage renal disease; N18.6 End stage renal disease; E78.00 Pure hypercholesterolemia, unspecified; E66.9 Obesity, unspecified; Z79.899 Other long term (current) drug therapy; Z68.33 Body mass index [BMI] 33.0-33.9, adult; Z89.432 Acquired absence of left foot; Y83.8 Other surgical procedures as the cause of abnormal reaction of the patient, or of later complication, without mention of misadventure at the time of the procedure; Y83.2 Surgical operation with anastomosis, bypass or graft as the cause of abnormal reaction of the patient, or of later complication, without mention of misadventure at the time of the procedure | CPT/HCPCS: G0463; A6212; A6209 ==

== ENCOUNTER 2024-09-19 06:43 | Day surgery (SDC) | payer OTHER ==
[2024-09-16 11:21] LABS: BASOPHILS # (AUTO) 0.05 K/uL (0.00-0.20); BASOPHILS % (AUTO) 0.3 % (0.0-5.0); HEMATOCRIT 40.1 % (42-54); IMMATURE GRANULOCYTE ABSOLUTE 0.06 K/uL (0-1); LYMPHOCYTES # (AUTO) 2.7 K/uL (1.0-4.8); LYMPHOCYTES % (AUTO) 18.4 % (21.0-51.0); MEAN CORPUSCULAR HGB CONC 32.4 g/dL (32.0-36.0); MEAN CORPUSCULAR VOLUME 95.7 fL (79-99); MONOCYTES # (AUTO) 1.2 K/uL (0.1-1.0); NEUTROPHILS # (AUTO) 10.4 K/uL (1.8-7.7); NEUTROPHILS % (AUTO) 70.9 % (40.0-77.0); PLATELET COUNT (AUTO) 306 K/uL (130-400); RED BLOOD CELL COUNT(AUTO) 4.19 MIL/uL (4.50-6.20); RED CELL DISTRIBUTION WIDTH 13.2 % (11.0-15.5); WHITE BLOOD COUNT (AUTO) 14.7 K/uL (4.8-10.8)
[2024-09-16 11:31] LABS: POTASSIUM 5.4 mmol/L (3.5-5.1)
[2024-09-16 11:33] LABS: INR 0.97 (0.85-1.15); PROTHROMBIN TIME 10.9 SEC (9.6-11.6)
[2024-09-16 11:35] LABS: PARTIAL THROMBOPLASTIN TIME 28.4 SEC (26.3-35.5)
[2024-09-16 11:42] LABS: CREATININE 9.5 mg/dL (0.5-1.3)
[2024-09-16 12:13] VITALS: BP 107/59; PULSE 95; RESP 18; TEMP 97.9
--- NOTE | 2024-09-17 16:09 | NUR ---
REPORT REPORTED BMP/WBC AND COUGH WITH CONGESTION TO [facility]EDY/DR MARTIN. RECEIVED ORDERS FOR REPEAT CBC AND CXR AM OF PROCEDURE
[~2024-09-19] VITALS: Ht 180.3 cm; Wt 103.0 kg
[~2024-09-19 06:43] MED LIST changes: -ACET-2079 PO; -CEPH500B PO; +CHOL200013 PO; +CINACALCET PO; -CLOP-31 PO; +HUMALOG SQ; -ISOS30TA92 PO; -LIDOCAINE HCL 4% LTA SOL 4 ML VIAL TP ONE; +SERT-439 PO; -SERT-440 PO; -SEVE800T7 PO; -TIRZ5PEN SQ; +TIRZ7.5P SQ; -lispro SQ; -tramadol PO; -vitamin d2 PO
[2024-09-19 07:31] LABS: BASOPHILS # (AUTO) 0.05 K/uL (0.00-0.20); BASOPHILS % (AUTO) 0.4 % (0.0-5.0); EOSINOPHILS # (AUTO) 0.44 K/uL (0.00-0.70); EOSINOPHILS % (AUTO) 3.5 % (0.0-8.0); HEMATOCRIT 34.7 % (42-54); IMMATURE GRANULOCYTE ABSOLUTE 0.04 K/uL (0-1); LYMPHOCYTES # (AUTO) 2.5 K/uL (1.0-4.8); LYMPHOCYTES % (AUTO) 20.1 % (21.0-51.0); MEAN CORPUSCULAR HEMOGLOBIN 31.3 pg (27.0-33.0); MEAN CORPUSCULAR HGB CONC 32.6 g/dL (32.0-36.0); MEAN CORPUSCULAR VOLUME 96.1 fL (79-99); MONOCYTES % (AUTO) 8.3 % (3.0-13.0); NEUTROPHILS # (AUTO) 8.4 K/uL (1.8-7.7); NEUTROPHILS % (AUTO) 67.4 % (40.0-77.0); PLATELET COUNT (AUTO) 298 K/uL (130-400); RED BLOOD CELL COUNT(AUTO) 3.61 MIL/uL (4.50-6.20); RED CELL DISTRIBUTION WIDTH 13.2 % (11.0-15.5); WHITE BLOOD COUNT (AUTO) 12.5 K/uL (4.8-10.8)
[2024-09-19] MEDS: ceFAZolin SODIUM 2 GM VIAL ONE (07:44)
[2024-09-19 07:45] LABS: POTASSIUM 5.7 mmol/L (3.5-5.1)
[2024-09-19] MEDS: 0.9% NACL 500ML IV.SOLN 500 ML IV ONE (07:45)
[2024-09-19 07:50] VITALS: BP 129/75; PULSE 100; RESP 18; TEMP 97.8
--- NOTE | 2024-09-19 08:11 | HMCIMG ---
Exam Type: CHEST 1VW Clinical Information: PREOP Comparison: None Findings: Left permacath line is noted with tip at the distal superior vena caval level. There is cardiomegaly. There is prominence of the vascular markings consistent with pulmonary venous congestion. IMPRESSION: Findings consistent with pulmonary venous congestion.
--- NOTE | 2024-09-19 08:15 | NUR ---
REPORTED NEW RESULTS OF CXR, CBC, BMP TO WILL TIM CRNA. STATES WILL DISCUSS FINDINGS WITH DR. MARTIN.
[2024-09-19 08:16] LABS: CREATININE 12.2 mg/dL (0.5-1.3)
--- NOTE | 2024-09-19 08:45 | NUR ---
DR. MARTIN AT BEDSIDE AT THIS TIME EXPLAINING TO PATIENT PROCEDURE CANCELED D/T NEW FINDINGS ON CXR, ELEVATED WBC AND POTASSIUM LEVEL. DR. MARTIN INSTRUCTED PATIENT TO FOLLOW UP WITH PCP FOR TREATMENT OF UPPER RESPIRATORY SYMPTOMS. ALSO INSTRUCTED PATIENT IMPORTANCE OF BEING DIALYZED TODAY D/T ELEVATED POTASSIUM. PATIENT VERBALIZED UNDERSTANDING. CALLED DR. KENDALL'S OFFICE (PCP) AT THIS TIME, UNABLE TO GET THROUGH, ONLY ANSWERING SERVICE. CALLED RENAL CARE OFFICE AND INFORMED PATIENT WOULD NEED TO REMAIN ON SCHEDULE FOR TODAY. STATED PATIENT MAY GO IN FOR SESSION TODAY AT REGULAR SCHEDULE. PATIENT INFORMED AND VERBALIZED UNDERSTANDING. INSTRUCTED PATIENT TO FOLLOW UP WITH PCP, TO SEE IF AVAILABLE TO BE SEEN TODAY
--- NOTE | 2024-09-19 09:34 | NUR ---
SPOKE WITH COUNSELOR DORMITORY AT DR. KENDALL'S OFFICE AND INFORMED PATIENT NEEDING TO BE SEEN BY PCP D/T CONGESTION/COUGH, ELEVATED WBC. STATES OFFICE WILL REACH OUT TO PATIENT THIS AM TO INFORM OF AVAILABILITY.
== END 2024-09-19 09:15 | disposition home or self-care (01) ==
LOC: DAH 06:43
PROVIDERS: ATTEND Student in an Organized Health Care Education/Training Program
DX: I72.1 Aneurysm of artery of upper extremity (principal); Z53.8 Procedure and treatment not carried out for other reasons; N18.6 End stage renal disease; I12.0 Hypertensive chronic kidney disease with stage 5 chronic kidney disease or end stage renal disease; E11.22 Type 2 diabetes mellitus with diabetic chronic kidney disease; I73.9 Peripheral vascular disease, unspecified; G47.30 Sleep apnea, unspecified; E66.9 Obesity, unspecified; Z68.33 Body mass index [BMI] 33.0-33.9, adult; Z79.899 Other long term (current) drug therapy
CPT/HCPCS: 80048 ×2; 85025 ×2; 85610; 85730; 86850; 86900; 86901; 36415 ×2; 71045; 82948; A6260; A4663; J7040; A4215; A4222; A4221; A4216; A4223 ×2; J0690

== ENCOUNTER 2024-11-14 07:32 | Day surgery (SDC) | payer OTHER ==
[2024-11-11 10:18] LABS: BASOPHILS # (AUTO) 0.07 K/uL (0.00-0.20); BASOPHILS % (AUTO) 0.7 % (0.0-5.0); EOSINOPHILS # (AUTO) 0.88 K/uL (0.00-0.70); EOSINOPHILS % (AUTO) 8.2 % (0.0-8.0); IMMATURE GRANULOCYTE ABSOLUTE 0.03 K/uL (0-1); LYMPHOCYTES # (AUTO) 2.2 K/uL (1.0-4.8); MEAN CORPUSCULAR HEMOGLOBIN 30.8 pg (27.0-33.0); MEAN CORPUSCULAR VOLUME 96.2 fL (79-99); MONOCYTES # (AUTO) 0.8 K/uL (0.1-1.0); MONOCYTES % (AUTO) 7.1 % (3.0-13.0); NEUTROPHILS # (AUTO) 6.7 K/uL (1.8-7.7); NEUTROPHILS % (AUTO) 62.7 % (40.0-77.0); PLATELET COUNT (AUTO) 311 K/uL (130-400); RED BLOOD CELL COUNT(AUTO) 4.26 MIL/uL (4.50-6.20); RED CELL DISTRIBUTION WIDTH 13.4 % (11.0-15.5); WHITE BLOOD COUNT (AUTO) 10.7 K/uL (4.8-10.8)
[2024-11-11 10:22] VITALS: BP 125/78; PULSE 97; RESP 14; TEMP 97.9
[2024-11-11 10:28] LABS: INR 1.07 (0.85-1.15); PROTHROMBIN TIME 11.3 SEC (9.6-11.6)
[2024-11-11 10:29] LABS: PARTIAL THROMBOPLASTIN TIME 29.5 SEC (26.3-35.5)
[2024-11-11 10:51] LABS: ALBUMIN 3.8 g/dL (3.5-5.0); BILIRUBIN,TOTAL 0.4 mg/dL (0.2-1.0); POTASSIUM 5.5 mmol/L (3.5-5.1); TOTAL PROTEIN, SERUM 9.3 g/dL (6.0-8.3)
[2024-11-11 10:53] LABS: CREATININE 8.2 mg/dL (0.5-1.3)
[2024-11-14] VITALS (13 sets, daily range): BP systolic 132–158; BP diastolic 62–83; PULSE 85–94; RESP 14–17; TEMP 97.4–97.9
[~2024-11-14] VITALS: Ht 177.8 cm; Wt 103.4 kg
[~2024-11-14 07:32] MED LIST changes: +CLOP-31 PO; -TIRZ7.5P SQ
[2024-11-14] MEDS ORDERED: ALBUMIN (HUMAN) 5% 250 ML IV ONE (08:02)
[2024-11-14] MEDS ORDERED: ketaMINE 50MG/ML SYRINGE 50 MG/ML DISP.SYRIN ONE (08:02)
[2024-11-14] MEDS ORDERED: GLYCOPYRROLATE 0.2 MG/ML 5 ML VIAL ONE (08:17)
[2024-11-14] MEDS ORDERED: SUCCINYLCHOLINE CHLORIDE 20 MG/ML 10 ML VIAL ONE (08:17)
[2024-11-14] MEDS ORDERED: LIDOCAINE PF 100MG/5ML (2%) SYRINGE 5ML ONE (08:17)
[2024-11-14] MEDS ORDERED: proPOFol 10 MG/ML 20ML VIAL IV ONE (08:17)
[2024-11-14] MEDS ORDERED: dexaMETHasone SOD PHOSPHATE 10MG/ML 1ML VIAL ONE (08:17)
[2024-11-14] MEDS ORDERED: ondanSETRON 4MG INJ ONE (08:18)
[2024-11-14] MEDS ORDERED: rocuRONium bROMide 10MG/1ML 5ML VL ONE ×2 (08:18→13:07)
[2024-11-14] MEDS ORDERED: FENTanyl CITRate PF 50 MCG/1 ML 2ML VIAL ONE (08:18)
[2024-11-14] MEDS ORDERED: NEOSTIGMINE METHYLSULFATE 1MG/ML IV ONE (08:18)
[2024-11-14] MEDS ORDERED: MIDAZOLAM HCL 1 MG/ML 2ML VIAL ONE (08:21)
[2024-11-14] MEDS ORDERED: SUGAMMADEX SODIUM 200 MG/2 ML VIAL IV ONE (08:22)
[2024-11-14] MEDS: 0.9% NACL 500ML IV.SOLN 500 ML IV ONE (08:44)
[2024-11-14] MEDS: ceFAZolin SODIUM 2 GM VIAL ONE (08:44)
[2024-11-14 08:47] LABS: POTASSIUM 4.9 mmol/L (3.5-5.1)
[2024-11-14 08:53] LABS: CREATININE 10.7 mg/dL (0.5-1.3)
[2024-11-14] MEDS: MIDAZOLAM HCL 1 MG/ML 2ML VIAL IVPB ONE (10:07)
[2024-11-14] MEDS: MIDAZOLAM HCL 1 MG/ML 2ML VIAL IVPB PRN (10:09)
[2024-11-14] MEDS: MIDAZOLAM HCL 1 MG/ML 2ML VIAL ONE (10:09)
[2024-11-14] MEDS ORDERED: HEParin-NS 1,000 UNIT/500 ML 500 ML IV ONE (12:10)
[2024-11-14] MEDS: ceFAZolin SODIUM 2 GM VIAL IVPB ONE (12:33)
[2024-11-14] MEDS ORDERED: HEParin 10,000 UNIT/10ML (1,000 UNIT/ML) VIAL ONE (12:48)
[2024-11-14] MEDS: HEParin 5,000 UNIT VIAL IRRIG ONE (12:50)
--- NOTE | 2024-11-14 17:25 | OP ---
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 Once general endotracheal anesthesia is achieved patient's left upper extremity is prepped and draped in sterile f ashion. I then proceeded to create a transverse incision over top of the antecubital fossa at the level of the arteriovenous anastomosis and proceeded to dissect around the proximal portion of the fistula just distal to the anastomosis and obtained proximal control. I then proceeded to create a longitudinal incision with a 15 blade at the upper arm at the distal fistula past the aneurysms. Proceeded to dissect through the skin and subcutaneous tissue and obtain distal control. Heparin 5000 units were given. Once we had proximal and distal control I then proceeded to use the [place] 35 vascular load to divide the fistula proximally and distally. However once we did the distal stapling I then revised the vein remove the staple in the vent vein was occlud ed. Not adequate to do an interposition graft. I then evaluated the basilic vein in the upper arm and it was adequate for a brachiobasilic graft creation. I then created a longitudinal incision over top of the aneurysms and then proceeded to use Bovie cautery to excise the aneurysm completely clipping it every branch from any collaterals that we identified. We then proceeded to obtain hemostasis at the surgical bed. I then proceeded to close his large incision where the aneurysm used to lay using 3-0 Vicryl running fashion. And leaving just the 2 incisions where we had exposure of the inflow and the outflow. I then proceeded to create a medial upper arm incision over top of were identified with the ultrasound the basilic vein. And dissected through the skin and subcutaneous tissue to expose the basilic vein in the upper medial arm. I then proceeded to use a curved C tunneler to tunnel from the proximal to the upper medial incision going laterally from our previous surgical bed from the aneurysm excision and then through here proceeded to tunnel and 8 mm straight graft making sure that the dotted line stayed up. I then proceeded to excise the staple lines. And created into an anastomosis on the arterial side and to end with 6-0 Prolene and on the basilic vein for the out flow in into end to side with 6-0 Prolene as well. Once both anastomosis were created we then confirmed that there was a good thrill throughout the graft. No bleeding was seen. All incisions were closed in 2 layers. With 3-0 Vicryl and then 4-0 Monocryl. The incision at the antecubital fossa on the upper arm we applied Dermabond over top. In the longitudinal incision over top of where the aneurysms used to be we applied a Prevena dressing over top. Patient tolerated the procedure well all counts were correct x2 at the end of the procedure. HERNÁN MARTIN MD Nov 14, 2024 17:24
== END 2024-11-14 16:45 | disposition home or self-care (01) ==
LOC: DAH 07:32
PROVIDERS: ATTEND Student in an Organized Health Care Education/Training Program
DX: I72.1 Aneurysm of artery of upper extremity (principal); I12.0 Hypertensive chronic kidney disease with stage 5 chronic kidney disease or end stage renal disease; E11.22 Type 2 diabetes mellitus with diabetic chronic kidney disease; N18.6 End stage renal disease; I73.9 Peripheral vascular disease, unspecified; G47.33 Obstructive sleep apnea (adult) (pediatric); Z98.890 Other specified postprocedural states
CPT/HCPCS: 80053; 85025; 85610; 85730; 86850 ×2; 86900 ×2; 86901 ×2; 36415 ×2; 36832; 80048; 82948 ×2; 88304; A6260; A4663; C1768; P9045; J7040; J3010; J1100; J0330; J3490 ×4; J2003; J1644 ×3; J2250 ×2; J2704; J2405; J2710; J0690 ×2; A4649 ×4; C1713 ×3; A9272; A4215; A4213; A4222; A4221; A4216; A4223 ×2; A4600

== ENCOUNTER → 2025-04-16 | Outpatient (CLI) | payer OTHER ==
[~2025-04-16] MED LIST changes: +ZOLP5TAB16 PO; -ZOLP5TAB8 PO
--- NOTE | 2025-04-17 14:28 | HMCIMG ---
EXAMINATION: NONCONTRAST MRI OF THE LEFT ANKLE. CLINICAL HISTORY: Suspected Achilles tendon injury. COMPARISON: None provided. TECHNIQUE: Multiplanar, multisequence MR images of the left ankle are submitted. FINDINGS: The posterior tibialis tendon remains intact without evidence of tendinopathy or tear. The flexor digitorum longus and flexor hallucis longus tendons are also normal in morphology. Superficial and deep fibers of the deltoid ligament are intact. The spring ligament is intact. The peroneal tendons are normal in morphology without evidence of tendinopathy or tear. The distal anterior and posterior tibiofibular ligaments are intact. The anterior talofibular, calcaneofibular, and posterior talofibular ligament are intact. Mild sinus tarsi edema with angle of Gissane degenerative cystic changes. The extensor tendons of the ankle are normal in course and morphology. Near full thickness Achilles tendon calcaneal attachment 2.3 cm tear with barely few intact lateral most fibers. There is no overt retraction. Moderate posterior calcaneal marrow edema. Moderate Kager's fat pad edema. The plantar fascia is within normal limits. Joint spaces appear preserved. There is a physiologic amount of fluid within the ankle joint. There is normal bulk and signal of the plantar musculature. Soft tissues appear within normal limits. IMPRESSION: 1. Near full-thickness Achilles tendon tear at the calcaneal attachment, measuring 2.3 cm, with fairly few intact lateral most fibers, but no significant retraction. Moderate posterior calcaneal marrow edema and Kager's fat pad edema. 2. Mild sinus tarsi edema with angle of Gissane degenerative cystic changes. /[place]
== END | disposition home or self-care (01) ==
LOC: RAH 09:50
PROVIDERS: ATTEND Orthopaedic Surgery
DX: S86.012A Strain of left Achilles tendon, initial encounter (principal); M85.68 Other cyst of bone, other site; R60.1 Generalized edema; X58.XXXA Exposure to other specified factors, initial encounter; Y93.89 Activity, other specified; Y92.89 Other specified places as the place of occurrence of the external cause; Y99.8 Other external cause status
CPT/HCPCS: 73721